=== PATIENT | female | born 1965 | race Caucasian/White ===

== ENCOUNTER 2017-01-01 19:02 | Inpatient (IN) | payer OTHER ==
[~2017-01-01] VITALS: Ht 157.5 cm; Wt 93.5 kg
[2017-01-01] MEDS ORDERED: IPRATRPIUM/ALBUTEROL 0.5/2.5MG 3 ML NEBU. ONE (19:27)
[2017-01-01] MEDS ORDERED: ALBUTEROL SULFATE 2.5 MG/3 ML NEBU. ONE (19:28)
[2017-01-01] MEDS ORDERED: IV NORMAL SALINE 1,000ML 1,000 ML ONE (19:35)
[2017-01-01] MEDS ORDERED: methylPREDNISolone SOD SUCC PF 125 MG/2 ML VIAL. ONE (19:35)
[2017-01-01] MEDS ORDERED: methylPREDNISolone SOD SUCC PF 125 MG/2 ML VIAL. IV ONE (19:40)
[2017-01-01] MEDS ORDERED: IPRATROPIUM BROMIDE 0.5 MG/2.5 ML NEBU. NEB ONE (19:40)
[2017-01-01] MEDS ORDERED: ALBUTEROL SULFATE 2.5 MG/3 ML NEBU. CONT NEB ONE (19:40)
[2017-01-01] MEDS ORDERED: IV NORMAL SALINE 1,000ML 1,000 ML IV ONE (19:40)
[2017-01-01 19:49] LABS: BASO # 0.1 x10^3/uL (0.0-0.2); BASO % 0 % (0-3); EOS # 0.6 x10^3/uL (0.0-0.7); EOS % 4 % (0-3); HEMATOCRIT 43.2 % (36.0-47.0); HEMOGLOBIN 14.5 g/dL (12.0-15.5); LYMPH # 1.2 x10^3/uL (1.0-4.8); LYMPH % 8 % (24-48); MEAN CORPUSCULAR HEMOGLOBIN 30 pg (25-35); MEAN CORPUSCULAR HGB CONC 34 g/dL (31-37); MEAN CORPUSCULAR VOLUME 89 fL (79-100); MONO # 0.9 x10^3/uL (0.0-1.1); MONO % 6 % (0-9); NEUT # 13.7 x10^3uL (1.8-7.7); NEUT % 83 % (31-73); PLATELET COUNT 312 x10^3/uL (140-400); RED BLOOD COUNT 4.88 x10^6/uL (3.50-5.40); RED CELL DISTRIBUTION WIDTH 13.4 % (11.5-14.5); WHITE BLOOD COUNT 16.5 x10^3/uL (4.0-11.0)
[2017-01-01 20:01] LABS: ALBUMIN/GLOBULIN RATIO 1.1 (1.0-1.7); CREATININE 0.7 mg/dL (0.6-1.0); GFR 88.2; POTASSIUM 4.2 mmol/L (3.5-5.1); TOTAL BILIRUBIN 0.3 mg/dL (0.2-1.0); TOTAL PROTEIN 7.5 g/dL (6.4-8.2)
[2017-01-01] MEDS ORDERED: AZITHROMYCIN 250 MG TABLET. PO ONE (20:45)
[2017-01-01 22:21] LABS: % BANDS 3 % (0-9); % EOS 2 % (0-5); % LYMPHS 11 % (24-48); % MONOS 3 % (0-10); % SEGS 81 % (35-66); PLT ESTIMATE ADEQUATE (ADEQUATE)
--- NOTE | 2017-01-01 22:33 | ED.ADGEN ---
Adult General Chief Complaint Chief Complaint Shortness of breath HPI HPI Patient is a 51-year-old female who presents with progressive shortness of breath for the past 2-3 days. Patient reports productive cough with clear phlegm. Reports generalized weakness, malaise, and subjective fever. Denies nausea vomiting, sweats. No chest pain, leg pain or swelling. Denies history of asthma, COPD, CAD or congestive heart failure. No history of DVT or PE. No other acute symptoms or complaints. Patient is a current pack per day smoker and has smoked for the past 25 years. She is accompanied at bedside by her spouse. Review of Systems Review of Systems ROS as per HPI. Current Medications Current Medications Current Medications Medications (Trade) Dose Ordered Sig/Margi Start Time Stop Time Status Last Admin Dose Admin Albuterol Sulfate (Ventolin) 10 mg 1X ONCE 01/01/17 19:40 01/01/17 19:41 DC 01/01/17 19:40 10 MG Albuterol/ Ipratropium (Duoneb) 3 ml RTQID 01/02/17 08:00 01/03/17 07:59 Azithromycin (Zithromax) 500 mg 1X ONCE 01/01/17 20:45 01/01/17 20:46 DC 01/01/17 20:45 500 MG Ceftriaxone Sodium 1 gm/ Sodium Chloride 50 ml @ 100 mls/hr 1X ONCE 01/01/17 20:45 01/01/17 21:14 DC 01/01/17 20:45 100 MLS/HR Ipratropium [place] (Atrovent) 0.5 mg 1X ONCE 01/01/17 19:40 01/01/17 19:41 DC 01/01/17 19:40 0.5 MG Methylprednisolone Sodium Succinate (SOLU-Medrol 125MG VIAL) 125 mg STK-MED ONCE 01/01/17 19:35 01/01/17 19:36 DC Sodium Chloride 1,000 ml @ 125 mls/hr Q8H 01/01/17 22:00 01/02/17 21:59 Allergies Allergies Allergies Coded Allergies Type Severity Reaction Last Updated Verified Sulfa (Sulfonamide Antibiotics) Allergy Unknown 01/01/17 Yes iodine Allergy Unknown 01/01/17 Yes Physical Exam Physical Exam Constitutional: Well developed, well nourished, no acute distress, non-toxic appearance. HENT: Normocephalic, atraumatic, bilateral external ears normal, oropharynx moist, no oral exudates, nose normal. Eyes: PERRLA, EOMI, conjunctiva normal. Neck: Normal range of motion, no tenderness, supple. Cardiovascular:Heart rate regular rhythm, no murmur. No calf pain or tenderness. Lungs & Thorax: No acute distress, tachypnea with respiratory rate 20-25, diminished breath sounds with rhonchi and inspiratory and expiratory wheezes, no rales appreciated. No conversational dyspnea. Abdomen: Bowel sounds normal, soft, no tenderness. Skin: Warm, dry, no erythema, no rash. Back: No tenderness. Extremities: No tenderness. Neurologic: Alert and oriented, normal motor function, normal sensory function, no focal deficits noted. Psychologic: Affect normal, judgement normal, mood normal. Current Patient Data Lab Results Laboratory Tests Test 01/01/17 19:20 White Blood Count 16.5 x10^3/uL (4.0-11.0) H Red Blood Count 4.88 x10^6/uL (3.50-5.40) Hemoglobin 14.5 g/dL (12.0-15.5) Hematocrit 43.2 % (36.0-47.0) Mean Corpuscular Volume 89 fL (79-100) Mean Corpuscular Hemoglobin 30 pg (25-35) Mean Corpuscular Hemoglobin Concent 34 g/dL (31-37) Red Cell Distribution Width 13.4 % (11.5-14.5) Platelet Count 312 x10^3/uL (140-400) Neutrophils (%) (Auto) 83 % (31-73) H Lymphocytes (%) (Auto) 8 % (24-48) L Monocytes (%) (Auto) 6 % (0-9) Eosinophils (%) (Auto) 4 % (0-3) H Basophils (%) (Auto) 0 % (0-3) Neutrophils # (Auto) 13.7 x10^3uL (1.8-7.7) H Lymphocytes # (Auto) 1.2 x10^3/uL (1.0-4.8) Monocytes # (Auto) 0.9 x10^3/uL (0.0-1.1) Eosinophils # (Auto) 0.6 x10^3/uL (0.0-0.7) Basophils # (Auto) 0.1 x10^3/uL (0.0-0.2) Segmented Neutrophils % 81 % (35-66) H Band Neutrophils % 3 % (0-9) Lymphocytes % 11 % (24-48) L Monocytes % 3 % (0-10) Eosinophils % 2 % (0-5) Platelet Estimate Adequate (ADEQUATE) Sodium Level 139 mmol/L (136-145) Potassium Level 4.2 mmol/L (3.5-5.1) Chloride Level 104 mmol/L (98-107) Carbon Dioxide Level 26 mmol/L (21-32) Anion Gap 9 (6-14) Blood Urea Nitrogen 8 mg/dL (7-20) Creatinine 0.7 mg/dL (0.6-1.0) Estimated GFR (Cockcroft-Gault) 88.2 BUN/Creatinine Ratio 11 (6-20) Glucose Level 108 mg/dL (70-99) H Lactic Acid Level 1.0 mmol/L (0.4-2.0) Calcium Level 9.0 mg/dL (8.5-10.1) Total Bilirubin 0.3 mg/dL (0.2-1.0) Aspartate Amino Transferase (AST) 14 U/L (15-37) L Alanine Aminotransferase (ALT) 25 U/L (14-59) Alkaline Phosphatase 81 U/L (46-116) Total Protein 7.5 g/dL (6.4-8.2) Albumin 4.0 g/dL (3.4-5.0) Albumin/Globulin Ratio 1.1 (1.0-1.7) EKG EKG [EKG: Normal sinus rhythm, rate 93, incomplete right bundle branch block, QTC 443.] Radiology/Procedures Radiology/Procedures [X-ray: Left lingular infiltrate per ED read.] Course & Med Decision Making Course & Med Decision Making Pertinent Labs and Imaging studies reviewed. (See chart for details) [Pneumonia with acute bronchospasm with acute respiratory failure with hypoxia. Patient placed on supplemental O2, given repeat exams, steroids and IV antibiotics. Patient with persistent wheezes. Dr. Reid to admit. ] Final Impression Final Impression [1. Pneumonia 2. Bronchospasm] Problems: Dragon Disclaimer Dragon Disclaimer This electronic medical record was generated, in whole or in part, using a voice recognition dictation system. AMENA AMBROES DO Jan 01, 2017 22:33
[2017-01-01 22:50] VITALS: BP 116/74
--- NOTE | 2017-01-01 23:19 | EKG ---
[address] [address] Test Date: 2017-01-01 Test Time: 19:38:33 Pat Name: JESSIKA JOEL Department: Room: 105 A Gender: F Safety Intern: : 1965 Requested By: AMENA AMBROSE Order Number: [id number] Reading MD: Shlio Packer Measurements Intervals [place] Rate: 93 P: 64 MN: 150 QRS: 59 QRSD: 88 T: 41 QT: 354 QTc: 443 Interpretive Statements SINUS RHYTHM Electronically Signed On 01-02-2017 8:37:26 CDT by Shilo Packer
[2017-01-01] MEDS: IV NORMAL SALINE 1,000ML 1,000 ML IV SCH (23:35)
[2017-01-02] MEDS ORDERED: TRAV5DRO EACHEYE (00:10)
--- NOTE | 2017-01-02 00:15 | ACF ---
Admission Criteria Forms PNEUMONIA, COMMUNITY ACQUIRED Clinical Indications for Admission to Inpatient Care (Place 'X' for any and all applicable criteria): Admission to inpatient status for two midnights or more is indicated for ANY ONE of the following (1)(2)(3): [ ]I. Hypoxia [ ]II. Hemodynamic instability [ ]III. Altered mental status that is severe or persistent [ ]IV. Dehydration that is severe or persistent. [ ]V. Bacteremia [ ]. Moderate-risk or high-risk category patients (Pneumonia Severity Index ( PSI) class IV or V, or CURB-65 score of 3 or greater). [ ]VII. Intermediate-risk category patients (e.g., PSI class III or CURB-65 score 2) who do not improve with outpatient and observation care treatment [ ]VIII. Outpatient treatment failure as indicated by 1 or more of the following(9): [ ]a) Failure to respond to antibiotic (eg, resistant organism) [ ]b) Clinically significant adverse effects from medication (eg, vomiting) [ ]c) Complications of pneumonia (eg, empyema, bacteremia) [ ]d) Significant worsening of comorbid cond necessitating inpatient care (eg, chronic heart failure) [X]IX. Appropriate diagnostic testing and treatment unavailable in outpatient or recovery facility (eg, testing or infection control measures unavailable) [ ]X. Respiratory finding (eg. tachypnea) that do not respond to outpatient observation care treatment [ ]XI. Complicated pleural effusions (eg, emphysema, exudative, loculated) [ ]XII. Immunocompromised patients (e.g., AIDS, chronic steroid use) at moderate or high risk based on clinical evaluation. Extended stay beyond goal length of stay may be needed for (20) [ ]a) Unclear diagnosis [ ]b) Pleural disease [ ]c) Severe pneumonia or treatment failure [ ]d) Respiratory failure [ ]e) New onset hyponatremia (serum Na concentration less than 135 mEq/L(mmol/ L) [ ]f) Clinically significant comorbid illness (eg, heart failure, atrial fibrillation with rapid heart rate, alcohol withdrawal, renal insufficiency)(34)(35) [ ]g) Comorbid acute exacerbation of COPD(36) [ ]h) Concomitant diagnosis of malignancy [ ]i) Concomitant altered mental status [ ]j) Culture-identified Gram-negative or antibiotic-resistant organism (eg, Pseudomonas, methicillin-resistant Staphylococcus aureus MRSA)(30) [ ]k) Healthcare-associated pneumonia (36) The original [facility] content created by [facility] has been revised. The portions of the content which have been revised are identified through the use of italic text, and [facility] has neither reviewed nor approved the modified material. All other unmodified content is copyright [facility]. Please see references footnoted in the original [facility] edition 2015 Admission Criteria Met?: Yes RAMON SMILEY Jan 02, 2017 00:15
[2017-01-02] MEDS ORDERED: IPRATRPIUM/ALBUTEROL 0.5/2.5MG 3 ML NEBU. ONE (05:17)
[2017-01-02] MEDS: IV NORMAL SALINE 1,000ML 1,000 ML IV SCH ×3 (05:41→21:22)
[2017-01-02 05:45] VITALS: BP 122/78
[2017-01-02 06:09] LABS: CALCIUM 8.6 mg/dL (8.5-10.1); CREATININE 0.7 mg/dL (0.6-1.0); GFR 88.2; POTASSIUM 4.1 mmol/L (3.5-5.1)
[2017-01-02 06:25] LABS: BASO # 0.1 x10^3/uL (0.0-0.2); BASO % 0 % (0-3); EOS % 0 % (0-3); HEMATOCRIT 40.1 % (36.0-47.0); HEMOGLOBIN 13.4 g/dL (12.0-15.5); LYMPH # 0.9 x10^3/uL (1.0-4.8); LYMPH % 6 % (24-48); MEAN CORPUSCULAR HEMOGLOBIN 30 pg (25-35); MEAN CORPUSCULAR HGB CONC 33 g/dL (31-37); MEAN CORPUSCULAR VOLUME 89 fL (79-100); MONO # 0.2 x10^3/uL (0.0-1.1); MONO % 2 % (0-9); NEUT # 14.5 x10^3uL (1.8-7.7); NEUT % 92 % (31-73); PLATELET COUNT 285 x10^3/uL (140-400); RED CELL DISTRIBUTION WIDTH 13.5 % (11.5-14.5); WHITE BLOOD COUNT 15.7 x10^3/uL (4.0-11.0)
[2017-01-02] MEDS: IPRATRPIUM/ALBUTEROL 0.5/2.5MG 3 ML NEBU. NEB SCH ×4 (06:44→20:37)
[2017-01-02] MEDS ORDERED: PNEUMOC CONJ VACC 23-VALENT 0.5 ML VIAL. VAX IM ONE ×2 (09:00)
[2017-01-02] MEDS ORDERED: methylPREDNISolone SOD SUCC PF 40 MG/ML VIAL. IV SCH (09:00)
[2017-01-02] MEDS: NICOTINE 14MG PATCH. TD SCH (09:00)
[2017-01-02] MEDS: methylPREDNISolone SOD SUCC PF 125 MG/2 ML VIAL. IV SCH ×3 (09:15→21:22)
[2017-01-02] MEDS ORDERED: ENOXAPARIN 30 MG/0.3 ML DISP.SYRIN. SQ SCH (09:30)
[2017-01-02] MEDS ORDERED: ALBUTEROL SULFATE 2.5 MG/3 ML NEBU. NEB PRN (09:30)
[2017-01-02] MEDS: guaiFENesin DM 600/30MG 1 TAB TAB.ER.12H PO SCH ×2 (09:47→21:21)
[2017-01-02] MEDS: ENOXAPARIN 40 MG/0.4 ML DISP.SYRIN. SQ SCH (09:48)
--- NOTE | 2017-01-02 09:48 | RAD ---
Portable chest, 01/01/2017: History: Shortness of breath The heart size and pulmonary vascularity are normal. There is minimal linear scarring or atelectasis in the left base. The lungs are otherwise clear. There is no evidence of pleural fluid. IMPRESSION: Minimal left basilar linear scarring or atelectasis.
[2017-01-02 10:33] LABS: BGAS PH 7.42 (7.35-7.45)
[2017-01-02 10:43] VITALS: BP 122/73
[2017-01-02 13:07] VITALS: BP 124/73
--- NOTE | 2017-01-02 13:08 | HP ---
ADMIT DATE: 01/02/2017 REASON FOR ADMISSION: Hypoxia and pneumonia. HISTORY OF PRESENT ILLNESS: This is a 51-year-old female, who was admitted in the evening of 01/01/2017. She presented complaining of shortness of breath, which she states she had since previous Friday evening. It got progressively worse. She felt hot and cold all day and "wheezy." She was producing some sputum, which was clear. She had been to [facility] and there was a lot of mold around evidently. She has never had a problem with her oxygen or breathing . She does recall some slight windedness when exerting herself. PAST MEDICAL HISTORY: Glaucoma. PAST SURGICAL HISTORY: Hysterectomy for fibroid tumor, wisdom teeth removal. MEDICATIONS: Only Travatan 1 drop at bedtime each eye. ALLERGIES: SULFA ANTIBIOTICS. HABITS: The patient has smoked 1 pack per day of cigarettes since age 15. No alcohol. IMMUNIZATIONS: The patient got a flu shot last March. FAMILY HISTORY: Father had glaucoma, diabetes. Brother and sister with type 2 diabetes. REVIEW OF SYSTEMS: Negative for weight loss. Negative for sore throat. Positive for "feverish." Negative for chest pain. Positive for shortness of breath. Negative bowel or bladder issues. OBJECTIVE: VITAL SIGNS: T-max since admission 99.7, pulse 104, respirations 22, pulse ox taken by me was 90% on 2 liters and oxygen was increased to 3 liters, it is now 94% on 3 liters. Height 62 inches, weight 204 pounds. GENERAL: A 51-year-old, who was mildly short of breath. ENT: Ears were normal. Hearing normal. Her eyes are clear. Nose is patent. Throat clear "without exudate" in the posterior pharynx, but she does have postnasal drip. NECK: Supple, without adenopathy. LUNGS: With diffuse expiratory wheezes and congestion sounds. CARDIOVASCULAR: Regular rhythm and rate. ABDOMEN: Soft, bowel sounds are positive, nontender. EXTREMITIES: Without edema. NEUROLOGIC: She is intact. LABORATORY DATA: White blood cell count 16.5, 81% neutrophils. ABG; CO2 is slightly low at 34, but her O2 is 64 3 liters. Chemistry profile essentially negative. Slightly elevated blood sugar this morning 166 after getting steroids. D-dimer negative. Chest x-ray, minimal left basal scarring or atelectasis. ASSESSMENT: 1. Acute hypoxic respiratory failure with picture of pneumonia. 2. Leukocytosis. 3. Obesity. 4. Glaucoma. PLAN: Antibiotics, oxygen, steroids, breathing treatments. HERBIE HAMMOND DO DR: ANAMARIA/sridevi JOB#: [id number] / [id number]
[2017-01-02 15:45] VITALS: BP 133/78
[2017-01-02] MEDS ORDERED: AZITHROMYCIN 250 MG TABLET. PO SCH (16:00)
[2017-01-02 19:15] VITALS: BP 127/76
[2017-01-02] MEDS ORDERED: ACETAMINOPHEN 650 MG/20.3 ML SOLUTION. PO PRN (19:45)
[2017-01-02] MEDS ORDERED: LATANOPROST 0.005% OPHTH SOLUTION 2.5ML BOTTLE. OU SCH (21:00)
[2017-01-02 22:35] VITALS: BP 119/75
[2017-01-03] MEDS: methylPREDNISolone SOD SUCC PF 125 MG/2 ML VIAL. IV SCH ×2 (05:24→14:00)
[2017-01-03] MEDS: IPRATRPIUM/ALBUTEROL 0.5/2.5MG 3 ML NEBU. NEB SCH (05:34)
[2017-01-03 05:45] VITALS: BP 140/86
[2017-01-03 06:39] LABS: BASO % 0 % (0-3); EOS % 0 % (0-3); HEMATOCRIT 38.7 % (36.0-47.0); HEMOGLOBIN 12.6 g/dL (12.0-15.5); LYMPH # 1.2 x10^3/uL (1.0-4.8); LYMPH % 6 % (24-48); MEAN CORPUSCULAR HEMOGLOBIN 29 pg (25-35); MEAN CORPUSCULAR HGB CONC 33 g/dL (31-37); MEAN CORPUSCULAR VOLUME 90 fL (79-100); MONO # 0.7 x10^3/uL (0.0-1.1); MONO % 4 % (0-9); NEUT # 18.8 x10^3uL (1.8-7.7); NEUT % 91 % (31-73); PLATELET COUNT 277 x10^3/uL (140-400); RED CELL DISTRIBUTION WIDTH 13.6 % (11.5-14.5); WHITE BLOOD COUNT 20.8 x10^3/uL (4.0-11.0)
[2017-01-03 06:52] LABS: ALBUMIN 3.2 g/dL (3.4-5.0); ALBUMIN/GLOBULIN RATIO 0.9 (1.0-1.7); CALCIUM 8.2 mg/dL (8.5-10.1); CREATININE 0.8 mg/dL (0.6-1.0); GFR 75.6; MAGNESIUM 2.1 mg/dL (1.8-2.4); POTASSIUM 3.9 mmol/L (3.5-5.1); TOTAL BILIRUBIN 0.2 mg/dL (0.2-1.0); TOTAL PROTEIN 6.7 g/dL (6.4-8.2)
[2017-01-03] MEDS: guaiFENesin DM 600/30MG 1 TAB TAB.ER.12H PO SCH (08:37)
[2017-01-03] MEDS: ENOXAPARIN 40 MG/0.4 ML DISP.SYRIN. SQ SCH (08:38)
[2017-01-03] MEDS: NICOTINE 14MG PATCH. TD SCH (08:38)
--- NOTE | 2017-01-03 09:14 | RAD ---
Chest, 2 views, 01/03/2017: History: Follow-up pneumonia Comparison is made to a study from 01/01/2017. On the PA view the upper lung ballesteros are overpenetrated. The heart size is normal. There is a worsening left basilar opacity compatible with atelectasis and/or pneumonitis. There is now a mild streaky right basilar opacity. No pleural fluid is seen. IMPRESSION: Worsening mild bibasilar atelectasis and/or pneumonitis.
[2017-01-03 10:49] VITALS: BP 119/74
[2017-01-03] MEDS ORDERED: PANTOPRAZOLE IV PUSH 40 MG VIAL. IVP SCH (12:00)
[2017-01-03] MEDS ORDERED: GUAI-107 PO (13:23)
[2017-01-03] MEDS ORDERED: ALBU8.5H8 INH (13:23)
[2017-01-03] MEDS ORDERED: DOXY100C2 PO (13:23)
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
== END 2017-01-03 15:30 | disposition home or self-care (01) | DRG 193 ==
LOC: ER 19:02 → 1 SOUTH 21:55
PROVIDERS: ADMIT Family Medicine; ATTEND Family Medicine
DX: J18.9 Pneumonia, unspecified organism (principal); J96.01 Acute respiratory failure with hypoxia; F17.210 Nicotine dependence, cigarettes, uncomplicated; E66.9 Obesity, unspecified; H40.9 Unspecified glaucoma; J98.01 Acute bronchospasm; E11.9 Type 2 diabetes mellitus without complications; Z90.710 Acquired absence of both cervix and uterus; Z79.4 Long term (current) use of insulin; Z79.899 Other long term (current) drug therapy; Z83.3 Family history of diabetes mellitus; Z88.2 Allergy status to sulfonamides; Z68.37 Body mass index [BMI] 37.0-37.9, adult; Z88.8 Allergy status to other drugs, medicaments and biological substances
CPT/HCPCS: 36415; 36600; 71010; 71020; 80048; 80053; 82803; 83605; 83735; 83880; 85007; 85027; 85379; 87040; 90732; 93005; 94640; 96361; 96365; 96375; 99406; C9113; J0456; J0696; J1650; J1956; J2930; J7613; J7620; J7644; 99285-25; J7030

== ENCOUNTER 2017-01-20 11:40 | Emergency (ER) | payer OTHER ==
[~2017-01-20 11:40] MED LIST: ALBU8.5H8 INH; DOXY100C2 PO; GUAI-107 PO; TRAV5DRO EACHEYE
--- NOTE | 2017-01-20 11:52 | PHYS DOC ---
General Chief Complaint: SHORTNESS OF BREATH Stated Complaint: SOA Time Seen by MD: 11:49 Source: patient Exam Limitations: no limitations Problems: History of Present Illness Initial Comments Patient is a 51-year-old female who comes to the ED complaining of shortness of breath. Patient was admitted January 01 for COPD exacerbation, her symptoms improved with bronchodilators and steroids and she was discharged home. She has a 30-pack- year smoking history she says she quit January 01. She had her spouse been traveling, they've been to [place] they've also been in the what they've described as some very aury environments. This morning the patient noticed she was wheezing and had some shortness of breath, though symptoms persisted so she returned to the ED. On arrival she is afebrile respiratory rate is 28 satting 97 % on room air. She denies any chest pain fever chills or myalgias nausea or vomiting. Timing/Duration: 4-6 hours Severity: moderate Modifying Factors: worse with movement, improves with rest Associated Symptoms: shortness of breath Allergies: Coded Allergies: Sulfa (Sulfonamide Antibiotics) (Verified Allergy, Intermediate, 01/03/17) Past Medical History Medical History: other (glaucoma) Surgical History: noncontributory Social History Smoker: quit less than 1 year ([id number] smoking history quit last month when she was hospitalized) Alcohol: none Drugs: none Review of Systems Constitutional: denies chills, denies diaphoresis, denies fever Respiratory: see HPI Cardiovascular: denies chest pain, denies palpitations, denies syncope Gastrointestinal: denies diarrhea, denies nausea, denies vomiting Genitourinary: denies dysuria, denies frequency, denies hematuria Musculoskeletal: denies back pain, denies joint swelling, denies neck pain Psychiatric/Neurological: denies headache, denies numbness, denies paresthesia Physical Exam General Appearance: WD/WN, mild distress Eyes: bilateral eye normal inspection, bilateral eye PERRL, bilateral eye EOMI Ear, Nose, Throat: hearing grossly normal, normal ENT inspection Neck: non-tender, supple Respiratory: other (wheezes noted bilaterally with good air movement and tachypnea mild respiratory distress) Cardiovascular: normal peripheral pulses, regular rate, rhythm Back: no CVA tenderness, no vertebral tenderness Extremities: non-tender, normal inspection, no pedal edema Neurologic/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 Interpreted by me PATIENT: JESSIKA JOEL ACCOUNT: [id number] : 1965 LOCATION: ER AGE: 51 SEX: F EXAM STATUS: REG ER ORD. PHYSICIAN: SERGO JARRETT DO REASON: sob PROCEDURE: CHEST PA & LATERAL Chest radiograph 01/20/2017 at 1217 hours Indication: History of aspiration pneumonia Comparison: Chest radiograph 01/03/2017 Technique: PA and lateral views of the chest are provided. Findings: Cardiomediastinal silhouette is within normal limits. No pleural effusions, pulmonary vascular congestion or pneumothorax. Improved aeration of the left lung base with minimal residual strandy density suggestive of minimal residual infiltrate versus atelectasis. Osseous structures are normal. Impression: Improved aeration of the left lung base with minimal residual strandy density suggestive of either minimal residual infiltrate versus subsegmental atelectasis and/or scarring. DICTATED AND SIGNED BY: ADI DOWNING MD DATE: 01/20/17 1221 CC: SERGO JARRETT DO; UGO CAUSEY DO, MPH ~ 1253: Patient rechecked after DuoNeb and Solu-Medrol. She now has good air movement with a faint diffuse wheeze, room air saturation is 96%. She relays that she feels much better she is no longer short of breath and she cannot tell that she is wheezing. I will treat with an albuterol nebulizer once more and if she continues to improve we'll plan to discharge home. 1323: Patient rechecked once again after albuterol nebulizer treatment. She continues to improve her vitals remained stable. Her spouse contacted [facility] and a nebulizer machine has been ordered. Patient is stable for discharge at this point see departure for instructions. Departure Time of Disposition: 13:23 Disposition: 01 HOME, SELF-CARE Diagnosis: COPD exacerbation, Condition: IMPROVED Patient Instructions: Chronic Obstructive Pulmonary Disease Exacerbation, Easy- to-Read Additional Instructions: Off work through January 24. Rest, no strenuous activity. Avoid extremes of temperature, smoke, and environmental allergens. Continue to refrain from smoking cigarettes. Prescriptions: Prednisone, Z-Song, DuoNeb, Diflucan use as directed. Follow-up at [place] in 2 days for recheck. Return to ED with new or changing symptoms. SERGO JARRETT DO Jan 20, 2017 11:52
[2017-01-20 12:11] LABS: BASO # 0.1 x10^3/uL (0.0-0.2); BASO % 1 % (0-3); EOS # 0.3 x10^3/uL (0.0-0.7); EOS % 3 % (0-3); HEMATOCRIT 39.2 % (36.0-47.0); LYMPH # 1.8 x10^3/uL (1.0-4.8); LYMPH % 19 % (24-48); MEAN CORPUSCULAR HEMOGLOBIN 30 pg (25-35); MEAN CORPUSCULAR HGB CONC 33 g/dL (31-37); MEAN CORPUSCULAR VOLUME 90 fL (79-100); MONO # 0.7 x10^3/uL (0.0-1.1); MONO % 7 % (0-9); NEUT % 71 % (31-73); PLATELET COUNT 284 x10^3/uL (140-400); RED BLOOD COUNT 4.37 x10^6/uL (3.50-5.40); RED CELL DISTRIBUTION WIDTH 13.4 % (11.5-14.5); WHITE BLOOD COUNT 9.9 x10^3/uL (4.0-11.0)
[2017-01-20] MEDS ORDERED: methylPREDNISolone SOD SUCC PF 125 MG/2 ML VIAL. IV ONE (12:20)
[2017-01-20] MEDS ORDERED: IPRATRPIUM/ALBUTEROL 0.5/2.5MG 3 ML NEBU. NEB ONE (12:20)
[2017-01-20 12:22] LABS: HEMOGLOBIN ISTAT 12.9 gm/dL; POTASSIUM ISTAT 3.6 mmol/L (3.5-5.0)
--- NOTE | 2017-01-20 12:24 | EKG ---
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
--- NOTE | 2017-01-20 12:25 | RAD ---
Chest radiograph 01/20/2017 at 1217 hours Indication: History of aspiration pneumonia Comparison: Chest radiograph 01/03/2017 Technique: PA and lateral views of the chest are provided. Findings: Cardiomediastinal silhouette is within normal limits. No pleural effusions, pulmonary vascular congestion or pneumothorax. Improved aeration of the left lung base with minimal residual strandy density suggestive of minimal residual infiltrate versus atelectasis. Osseous structures are normal. Impression: Improved aeration of the left lung base with minimal residual strandy density suggestive of either minimal residual infiltrate versus subsegmental atelectasis and/or scarring.
[2017-01-20] MEDS ORDERED: IPRA3AMP NEB (12:57)
[2017-01-20] MEDS ORDERED: AZIT250T PO (12:57)
[2017-01-20] MEDS ORDERED: PRED20TA PO (12:57)
[2017-01-20] MEDS ORDERED: FLUCONAZOLE 100 MG TABLET. PO ONE (13:00)
[2017-01-20] MEDS ORDERED: ALBUTEROL SULFATE 2.5 MG/3 ML NEBU. NEB ONE (13:15)
[2017-01-20 13:41] VITALS: BP 106/64
== END 2017-01-20 13:42 | disposition home or self-care (01) ==
LOC: ER 11:40
DX: J44.1 Chronic obstructive pulmonary disease with (acute) exacerbation (principal); Z87.891 Personal history of nicotine dependence; Z88.2 Allergy status to sulfonamides
CPT/HCPCS: 36415; 71020; 80047; 82550; 84484; 85025; 85379; 93005; 94640; 99285; J2930; J7613; J7620